=== PATIENT | male | born 1945 | race African-American/Black ===

== ENCOUNTER 2017-07-28 22:04 | Inpatient (IN) | payer MEDICARE, MEDICAID ==
[~2017-07-28] VITALS: Ht 175.3 cm; Wt 79.4 kg
[~2017-07-28 22:04] MED LIST: UNOBMED
[2017-07-28 22:08] VITALS: BP 151/74
--- NOTE | 2017-07-28 22:27 | Emergency Room Report ---
History of Present Illness General Chief Complaint: Syncope Source: EMS Present Illness HPI 72-year-old male p/w pre- syncopal episode. 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 No head trauma and no actual LOC Pt states feeling lightheadedness/nauseous before event. Denies sob, palpitations, or chest pain before event. There was no seizure like activity, tongue biting, urinary incontinence, blurry vision, or HOBBS. Pt has been eating/drinking well. Denies recent fever, chills, n/v/d. Allergies: Coded Allergies: No Known Allergies (Verified , 10/14/08) Patient History Past Medical History: see triage record Past Surgical History: none Pertinent Family History: none Reviewed Nursing Documentation: PMH: Agreed, PSxH: Agreed Nursing Documentation-PMH Hx Cardiac Problems: Yes - HIGH CHOLESTEROL Hx Hypertension: Yes Hx Diabetes: Yes - BORDERLINE DM Review of Systems All Other Systems: negative except mentioned in HPI Physical Exam Vital Signs Date Time Temp Pulse Resp B/P (MAP) Pulse Ox O2 Delivery O2 Flow Rate FiO2 07/28/17 21:59 97.0 66 18 142/70 99 Room Air 97.0 Sp02 EP Interpretation: reviewed, normal General Appearance: normal inspection, well appearing, no apparent distress, alert, GCS 15, non-toxic Head: normocephalic, atraumatic Eyes: bilateral eye normal inspection, bilateral eye PERRL, bilateral eye EOMI ENT: normal ENT inspection, normal pharynx, normal voice, moist mucus membranes Neck: normal inspection, full range of motion, supple Respiratory: normal inspection, lungs clear, normal breath sounds, no respiratory distress, no retraction, no wheezing, speaking full sentences, chest symmetrical Cardiovascular #1: normal inspection, regular rate, rhythm, no edema, normal capillary refill Cardiovascular #2: 2+ radial (R), 2+ radial (L) Gastrointestinal: normal inspection, non tender, soft, non-distended, no guarding Genitourinary: no CVA tenderness Musculoskeletal: normal inspection, back normal, normal range of motion, non- tender Neurologic: normal inspection, alert, oriented x3, responsive, motor strength/ tone normal, sensory intact, normal gait, speech normal Psychiatric: normal inspection, judgement/insight normal, memory normal Skin: normal inspection, normal color, no rash, warm/dry, well hydrated, normal turgor Medical Decision Making Diagnostic Impression: Primary Impression: Pre-syncope Additional Impression: Renal failure ER Course 72-year-old male with pre-syncopal episode DDX: Vasovagal vs. orthostatic / hypovolemic/dehydration vs. cardiac arrhythmia (SVT , Afib) vs. cardiac (, ACS) vs. PE vs. metabolic (hypoglycemia, hypoxia), vs neuro (seizure, CVA, intracranial bleed) Plan: bgm, cbc, bmp, ekg, cxr ER course: Patient has remained stable during ED stay. No further syncopal episodes Labs unremarkable Disposition: Patient requires admission to telemetry. Patient requires further workup of syncopal episode, further lab testing, serial troponins, cardiac monitoring D/W hospitalist Please note that this Emergency Department Report was dictated using [employer] technology software, occasionally this can lead to erroneous entry secondary to interpretation by the dictation equipment EKG Diagnostic Results EP Interpretation: Yes Rate: normal Rhythm: NSR ST Segments: T wave inversion in aVL ASA given to patient: No Rhythm Strip EP Interpretation: Yes Rate: 59 Rhythm: NSR, no PVCs, no ectopy Chest X-ray CXR: Ordered: Yes 1 view Indication: Syncope EP interpretation: Yes Interpretation: No consolidation, no effusion, no PTX, no acute cardiopulmonary disease Impression: No acute disease Electronically signed by Mahi Stewart MD Laboratory Tests Test 07/28/17 22:35 White Blood Count 7.8 K/UL (4.8-10.8) Red Blood Count 3.33 M/UL (4.70-6.10) L Hemoglobin 10.2 G/DL (14.2-18.0) L Hematocrit 31.0 % (42.0-52.0) L Mean Corpuscular Volume 93 FL (80-99) Mean Corpuscular Hemoglobin 30.7 PG (27.0-31.0) Mean Corpuscular Hemoglobin Concent 33.0 G/DL (32.0-36.0) Red Cell Distribution Width 15.0 % (11.6-14.8) H Platelet Count 254 K/UL (150-450) Mean Platelet Volume 6.2 FL (6.5-10.1) L Neutrophils (%) (Auto) 61.6 % (45.0-75.0) Lymphocytes (%) (Auto) 24.1 % (20.0-45.0) Monocytes (%) (Auto) 8.9 % (1.0-10.0) Eosinophils (%) (Auto) 4.4 % (0.0-3.0) H Basophils (%) (Auto) 1.0 % (0.0-2.0) Urine Color Pale yellow Urine Appearance Clear Urine pH 6 (4.5-8.0) Urine Specific [place] 1.010 (1.005-1.035) Urine Protein 3+ (NEGATIVE) H Urine Glucose (UA) Negative (NEGATIVE) Urine Ketones Negative (NEGATIVE) Urine Occult Blood 2+ (NEGATIVE) H Urine Nitrite Negative (NEGATIVE) Urine Bilirubin Negative (NEGATIVE) Urine Urobilinogen Normal MG/DL (0.0-1.0) Urine Leukocyte Esterase 1+ (NEGATIVE) H Urine RBC 2-4 /HPF (0 - 0) H Urine WBC 2-4 /HPF (0 - 0) Urine Squamous Epithelial Cells None /LPF (NONE/OCC) Urine Bacteria Few /HPF (NONE) Sodium Level 139 MMOL/L (136-145) Potassium Level 4.8 MMOL/L (3.5-5.1) Chloride Level 109 MMOL/L (98-107) H Carbon Dioxide Level 20 MMOL/L (21-32) L Anion Gap 10 mmol/L (5-15) Blood Urea Nitrogen 69 mg/dL (7-18) H Creatinine 4.6 MG/DL (0.55-1.30) H Estimate Glomerular Filtration Rate 15.4 mL/min (>60) Glucose Level 104 MG/DL (74-106) Calcium Level 8.5 MG/DL (8.5-10.1) Total Bilirubin 0.3 MG/DL (0.2-1.0) Aspartate Amino Transferase (AST) 11 U/L (15-37) L Alanine Aminotransferase (ALT) 19 U/L (12-78) Alkaline Phosphatase 85 U/L (46-116) Troponin I 0.013 ng/mL (0.000-0.056) Pro-B-Type Natriuretic Peptide 439 pg/mL (0-125) H Total Protein 7.9 G/DL (6.4-8.2) Albumin 3.2 G/DL (3.4-5.0) L Globulin 4.7 g/dL Albumin/Globulin Ratio 0.7 (1.0-2.7) L Last Vital Signs Date Time Temp Pulse Resp B/P (MAP) Pulse Ox O2 Delivery O2 Flow Rate FiO2 07/28/17 22:08 97.6 66 15 151/74 99 Room Air 97.6 Disposition: ADMITTED INPATIENT Condition: Serious RetinoMahi M.D. Jul 28, 2017 22:26
[2017-07-28 22:55] LABS: APPEARANCE,URINE CLEAR; BILIRUBIN, URINE NEGATIVE (NEGATIVE); COLOR,URINE PALE YELLOW; GLUCOSE, URINE (UA) NEGATIVE (NEGATIVE); KETONES,URINE NEGATIVE (NEGATIVE); LEUKOCYTE ESTERASE ,URINE 1+ (NEGATIVE); NITRITE,URINE NEGATIVE (NEGATIVE); PH,URINE 6 (4.5-8.0); PROTEIN,URINE 3+ (NEGATIVE); UROBILINOGEN,URINE NORMAL MG/DL (0.0-1.0)
[2017-07-28 23:05] LABS: EOSINOPHILS % (AUTO) 4.4 % (0.0-3.0); HEMOGLOBIN 10.2 G/DL (14.2-18.0); LYMPHOCYTES % (AUTO) 24.1 % (20.0-45.0); MEAN CORPUSCULAR VOLUME 93 FL (80-99); MONOCYTES % (AUTO) 8.9 % (1.0-10.0); NEUTROPHILS % (AUTO) 61.6 % (45.0-75.0); PLATELET COUNT 254 K/UL (150-450); RED BLOOD COUNT 3.33 M/UL (4.70-6.10); WHITE BLOOD COUNT 7.8 K/UL (4.8-10.8)
[2017-07-28 23:14] LABS: ANION GAP 10 mmol/L (5-15); BLOOD UREA NITROGEN 69 mg/dL (7-18); CALCIUM 8.5 MG/DL (8.5-10.1); CARBON DIOXIDE 20 MMOL/L (21-32); CHLORIDE 109 MMOL/L (98-107); CREATININE 4.6 MG/DL (0.55-1.30); POTASSIUM 4.8 MMOL/L (3.5-5.1); SODIUM 139 MMOL/L (136-145)
[2017-07-28 23:22] LABS: ALANINE AMINOTRANSFERASE 19 U/L (12-78); ALBUMIN 3.2 G/DL (3.4-5.0); ALBUMIN/GLOBULIN RATIO 0.7 (1.0-2.7); ALKALINE PHOSPHATASE 85 U/L (46-116); ASPARTATE AMINO TRANSFERASE 11 U/L (15-37); BILIRUBIN,TOTAL 0.3 MG/DL (0.2-1.0)
[2017-07-29] VITALS (8 sets, daily range): BP systolic 133–171; BP diastolic 72–80
[2017-07-29] MEDS ORDERED: Morphine Sulfate 4mg/ml Inj IVP ONE (02:45)
[2017-07-29] MEDS: D5 1/2NS 1,000 ML IV SCH ×2 (04:00→17:41)
[2017-07-29 08:10] LABS: HEMATOCRIT 28.3 % (42.0-52.0); HEMOGLOBIN 9.4 G/DL (14.2-18.0); LYMPHOCYTES % (AUTO) 20.6 % (20.0-45.0); MEAN CORPUSCULAR VOLUME 93 FL (80-99); MONOCYTES % (AUTO) 12.5 % (1.0-10.0); PLATELET COUNT 238 K/UL (150-450); RED BLOOD COUNT 3.03 M/UL (4.70-6.10); RED CELL DISTRIBUTION WIDTH 15.1 % (11.6-14.8); WHITE BLOOD COUNT 6.6 K/UL (4.8-10.8)
[2017-07-29 08:32] LABS: ALANINE AMINOTRANSFERASE 15 U/L (12-78); ALBUMIN 2.7 G/DL (3.4-5.0); ALBUMIN/GLOBULIN RATIO 0.7 (1.0-2.7); ALKALINE PHOSPHATASE 85 U/L (46-116); ANION GAP 11 mmol/L (5-15); ASPARTATE AMINO TRANSFERASE 10 U/L (15-37); BILIRUBIN,TOTAL 0.3 MG/DL (0.2-1.0); BLOOD UREA NITROGEN 69 mg/dL (7-18); CALCIUM 8.2 MG/DL (8.5-10.1); CARBON DIOXIDE 17 MMOL/L (21-32); CHLORIDE 112 MMOL/L (98-107); CREATININE 4.4 MG/DL (0.55-1.30); POTASSIUM 4.5 MMOL/L (3.5-5.1); SODIUM 140 MMOL/L (136-145)
--- NOTE | 2017-07-29 09:23 | Diagnostic Imaging Report ---
Indication: Reason For Exam: PAIN Technique: XRAY Chest 1v Comparison: 10/14/2008. Findings: The cardiomediastinal silhouette is normal. The lungs are clear. There is no evidence of pleural fluid. The bones are unremarkable. Impression: Normal chest.
--- NOTE | 2017-07-29 11:07 | Consultation ---
Consult Note Consult Note asked to eval for renal failure- Chief Complaint: Syncope 72-year-old male p/w pre- syncopal episode. 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 No head trauma and no actual LOC Pt states feeling lightheadedness/nauseous before event. Denies sob, palpitations, or chest pain before event. There was no seizure like activity, tongue biting, urinary incontinence, blurry vision, or HOBBS. Pt has been eating/drinking well. Denies recent fever, chills, n/v/d. 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
[2017-07-29] MEDS: Tamsulosin 0.4mg cap ORAL SCH ×2 (12:13→17:41)
--- NOTE | 2017-07-29 13:35 | Cardiac Electrophysiology PN ---
Subjective Subjective [id number] HTN Syncope First degree AVB CKD Cr 4.4 Objective Last 24 Hour Vital Signs Date Time Temp Pulse Resp B/P (MAP) Pulse Ox O2 Delivery O2 Flow Rate FiO2 07/29/17 12:13 64 133/80 07/29/17 12:00 96.6 64 20 133/80 96 Room Air 96.6 07/29/17 08:00 96.3 59 20 149/77 97 Room Air 96.3 07/29/17 04:00 57 07/29/17 03:30 98.0 72 17 150/78 100 Room Air 98.0 07/29/17 03:15 98.0 72 17 150/78 100 Room Air 98.0 07/29/17 02:49 97.8 07/29/17 02:25 97.6 74 16 145/74 99 Room Air 97.6 07/29/17 01:45 97.8 78 15 155/78 100 Room Air 97.8 07/29/17 00:05 72 16 148/72 99 Room Air 07/28/17 22:08 97.6 66 15 151/74 99 Room Air 97.6 07/28/17 21:59 97.0 66 18 142/70 99 Room Air 97.0 Intake and Output 07/28/17 07/29/17 19:00 07:00 # Voids 1 Laboratory Tests Test 07/28/17 22:35 07/29/17 07:33 07/29/17 11:20 White Blood Count 7.8 K/UL (4.8-10.8) 6.6 K/UL (4.8-10.8) Red Blood Count 3.33 M/UL (4.70-6.10) L 3.03 M/UL (4.70-6.10) L Hemoglobin 10.2 G/DL (14.2-18.0) L 9.4 G/DL (14.2-18.0) L Hematocrit 31.0 % (42.0-52.0) L 28.3 % (42.0-52.0) L Mean Corpuscular Volume 93 FL (80-99) 93 FL (80-99) Mean Corpuscular Hemoglobin 30.7 PG (27.0-31.0) 31.1 PG (27.0-31.0) H Mean Corpuscular Hemoglobin Concent 33.0 G/DL (32.0-36.0) 33.3 G/DL (32.0-36.0) Red Cell Distribution Width 15.0 % (11.6-14.8) H 15.1 % (11.6-14.8) H Platelet Count 254 K/UL (150-450) 238 K/UL (150-450) Mean Platelet Volume 6.2 FL (6.5-10.1) L 6.8 FL (6.5-10.1) Neutrophils (%) (Auto) 61.6 % (45.0-75.0) 62.0 % (45.0-75.0) Lymphocytes (%) (Auto) 24.1 % (20.0-45.0) 20.6 % (20.0-45.0) Monocytes (%) (Auto) 8.9 % (1.0-10.0) 12.5 % (1.0-10.0) H Eosinophils (%) (Auto) 4.4 % (0.0-3.0) H 4.0 % (0.0-3.0) H Basophils (%) (Auto) 1.0 % (0.0-2.0) 1.0 % (0.0-2.0) Urine Color Pale yellow Urine Appearance Clear Urine pH 6 (4.5-8.0) Urine Specific [place] 1.010 (1.005-1.035) Urine Protein 3+ (NEGATIVE) H Urine Glucose (UA) Negative (NEGATIVE) Urine Ketones Negative (NEGATIVE) Urine Occult Blood 2+ (NEGATIVE) H Urine Nitrite Negative (NEGATIVE) Urine Bilirubin Negative (NEGATIVE) Urine Urobilinogen Normal MG/DL (0.0-1.0) Urine Leukocyte Esterase 1+ (NEGATIVE) H Urine RBC 2-4 /HPF (0 - 0) H Urine WBC 2-4 /HPF (0 - 0) Urine Squamous Epithelial Cells None /LPF (NONE/OCC) Urine Bacteria Few /HPF (NONE) Sodium Level 139 MMOL/L (136-145) 140 MMOL/L (136-145) Potassium Level 4.8 MMOL/L (3.5-5.1) 4.5 MMOL/L (3.5-5.1) Chloride Level 109 MMOL/L (98-107) H 112 MMOL/L (98-107) H Carbon Dioxide Level 20 MMOL/L (21-32) L 17 MMOL/L (21-32) L Anion Gap 10 mmol/L (5-15) 11 mmol/L (5-15) Blood Urea Nitrogen 69 mg/dL (7-18) H 69 mg/dL (7-18) H Creatinine 4.6 MG/DL (0.55-1.30) H 4.4 MG/DL (0.55-1.30) H Estimat Glomerular Filtration Rate 15.4 mL/min (>60) 16.2 mL/min (>60) Glucose Level 104 MG/DL (74-106) 97 MG/DL (74-106) Calcium Level 8.5 MG/DL (8.5-10.1) 8.2 MG/DL (8.5-10.1) L Total Bilirubin 0.3 MG/DL (0.2-1.0) 0.3 MG/DL (0.2-1.0) Aspartate Amino Transf (AST/SGOT) 11 U/L (15-37) L 10 U/L (15-37) L Alanine Aminotransferase (ALT/SGPT) 19 U/L (12-78) 15 U/L (12-78) Alkaline Phosphatase 85 U/L (46-116) 85 U/L (46-116) Troponin I 0.013 ng/mL (0.000-0.056) Pro-B-Type Natriuretic Peptide 439 pg/mL (0-125) H Total Protein 7.9 G/DL (6.4-8.2) 6.8 G/DL (6.4-8.2) Albumin 3.2 G/DL (3.4-5.0) L 2.7 G/DL (3.4-5.0) L Globulin 4.7 g/dL 4.1 g/dL Albumin/Globulin Ratio 0.7 (1.0-2.7) L 0.7 (1.0-2.7) L C-Reactive Protein, Quantitative < 0.4 mg/dL (0.00-0.90) Urine Eosinophils None seen PELON TIDWELL Jul 29, 2017 13:35
--- NOTE | 2017-07-29 16:00 | Consultation ---
DATE OF CONSULTATION: 07/29/2017 CARDIOLOGY CONSULTATION CONSULTING PHYSICIAN: Marvin Macedo M.D. REFERRING PHYSICIAN: Una Prince M.D. REASON FOR CONSULTATION: Management of hypertension and syncope. HISTORY OF PRESENT ILLNESS: The patient is a very pleasant 72-year-old gentleman with history of hypertension, borderline diabetes, and hyperlipidemia, who was brought to the emergency room as he had syncopal episodes. The patient was feeling vp clinical his house and that he thought was sweating a lot. The patient then started feeling lightheaded and dizzy and felt like he was going to pass out. He did not have any head trauma and did not actually have loss of consciousness. The patient does not have history of seizures and did not have any seizure-like activity. His EKG actually showed normal sinus rhythm. He has completely normal electrocardiogram. On telemetry, the patient has remained in normal sinus rhythm with no arrhythmias. Cardiac electrophysiology consultation was obtained for further evaluation and management. REVIEW OF SYSTEMS: Negative other than what was mentioned in history of present illness. PAST MEDICAL HISTORY: 1. Hypertension. 2. Diabetes, borderline. 3. Hyperlipidemia. FAMILY HISTORY: Noncontributory. SOCIAL HISTORY: He is a lives at home. Does not smoke or drink alcohol. PHYSICAL EXAMINATION: VITAL SIGNS: Blood pressure is 132/80, pulse 64, respirations 18, and he is afebrile. HEAD AND NECK: Shows no JVD. LUNGS: Clear. CARDIOVASCULAR: Shows regular S1 and S2 with no gallop or murmur. ABDOMEN: Soft. EXTREMITIES: No pitting edema. LABORATORY AND DIAGNOSTIC DATA: His EKG showed normal sinus rhythm. He has normal electrocardiogram. He only has first-degree AV block and UT interval of 202 msec. LABORATORY DATA: White count of 6.6, hemoglobin 9.4, hematocrit 28.3, and platelet of 238,000. Sodium 140, potassium 4.5, BUN of 69, creatinine of 4.4, and glucose of 97. His troponin is negative. BNP is 439. ASSESSMENT AND PLAN: 1. Syncopal episode, etiology is unclear at this time. We will completely rule out CA protocol and get an echocardiogram to evaluate for ejection fraction and wall motion abnormality the patient has first-degree AV block. There is no evidence of more advanced heart block. The patient will be kept off of AV velia-blocking agent. 2. Hypertension. Continue Norvasc 100 mg daily. 3. Urinary tract infection. 4. Renal failure with creatinine of 4.6. The patient has already been evaluated by Dr. Alvarado. 5. Borderline diabetes. 6. Anemia. Thank you very much, [id number], for allowing me to participate in the care of this patient. Please do not hesitate to contact me for any questions regarding my evaluation. Marvin Macedo M.D. DR: Azar JOB#: [id number] CC:
--- NOTE | 2017-07-29 16:01 | Cardiology Report ---
APPROVED REPORT EKG Measurement Heart [id number] Normal sinus rhythm Normal ECG
--- NOTE | 2017-07-29 16:25 | History & Physical ---
History and Physical History & Physicial Patient seen and examined. Full H&P to follow. Dx: CKD, syncope Plan: renal & cardiology consultation. f/u labs and imaging studies Mirna Mayorga N.P. Jul 29, 2017 16:25
--- NOTE | 2017-07-29 16:44 | Cardiology Report ---
APPROVED REPORT EXAM: Two-dimensional and M-mode echocardiogram with Doppler and color Doppler. INDICATION Congestive Heart Failure M-Mode DIMENSIONS IVSd1.5 (0.7-1.1cm)Left Atrium (MM)2.9 (1.6-4.0cm) LVDd3.9 (3.5-5.6cm)Aortic Root2.8 (2.0-3.7cm) PWd1.8 (0.7-1.1cm)Aortic Cusp Exc.2.0 (1.5-2.0cm) LVDs2.0 (2.5-4.0cm) PWs1.7 cm Normal left ventricular chamber size, systolic function and wall motion. Left ventricular ejection fraction estimated to be 60-65%. Moderate left ventricular hypertrophy. No evidence of pericardial or pleural effusion. Mild bi-atrial enlargement by 2D. Focal aortic valve sclerosis with adequate cusp excursion. Thickened mitral valve leaflets with normal excursion. Mild mitral annulus and aortic root calcification. Pulmonic valve not well visualized. Normal tricuspid valve structure. IVC is normal in size and collapsible with respiration. A color flow and spectral Doppler study was performed and revealed: No aortic regurgitation. No mitral regurgitation. Mitral diastolic velocities suggest reduced left ventricular relaxation c/w diastolic dysfunction grade 1. No tricuspid regurgitation.
--- NOTE | 2017-07-29 23:25 | History and Physical ---
History of Present Illness General Date patient seen: Jul 29, 2017 Time patient seen: 12:01 Reason for Hospitalization: Syncope Present Illness HPI 72 y/o male with a PMH of CKD and HTN presented for syncopal episode yesterday. Patient states that he was in a lot of clothes with the heat turned on and was sweating from excessive heat. Patient states that he was sitting and passed out for about a minute. Denies any head trauma. +LOC. Denies any chest pain, sob, n/ v, abdominal pain, f/c, cough. Patient also noted with elevated Cr and per patient, he has an appointment with his outpatient sports management internship to start dialysis. Allergies: Coded Allergies: No Known Allergies (Verified , 10/14/08) Medication History Miscellaneous Medications Unable to Obtain Medications (Unable To Obtain Meds), (Reported) Patient History History Provided By: Patient Healthcare decision maker Andrea Stacy Girlfrienelvie Resuscitation status Full Code Advanced Directive on File Review of Systems Constitutional: Reports: no symptoms, see HPI Eye: Reports: no symptoms ENT: Reports: no symptoms Respiratory: Reports: no symptoms Cardiovascular: Reports: no symptoms Gastrointestinal: Reports: no symptoms Genitourinary: Reports: no symptoms Musculoskeletal: Reports: no symptoms Skin: Reports: no symptoms Psychiatric: Reports: no symptoms Neurological: Reports: no symptoms Endocrine: Reports: no symptoms Hematologic/Lymphatic: Reports: no symptoms Physical Exam General Appearance: no apparent distress, alert Lines, tubes and drains: peripheral HEENT: normocephalic, atraumatic Neck: non-tender, normal alignment, supple Respiratory/Chest: chest wall non-tender, lungs clear, normal breath sounds, no accessory muscle use Cardiovascular/Chest: normal peripheral pulses, normal rate, regular rhythm Neurologic: lumber trimmer II-XII grossly normal, no motor/sensory deficits Last 24 Hour Vital Signs Date Time Temp Pulse Resp B/P (MAP) Pulse Ox O2 Delivery O2 Flow Rate FiO2 07/29/17 20:36 96.9 07/29/17 20:00 67 07/29/17 16:00 96.9 61 20 152/80 96 Room Air 96.9 07/29/17 16:00 64 07/29/17 12:13 64 133/80 07/29/17 12:00 96.6 64 20 133/80 96 Room Air 96.6 07/29/17 12:00 62 07/29/17 08:00 66 07/29/17 08:00 96.3 59 20 149/77 97 Room Air 96.3 07/29/17 04:00 57 07/29/17 03:30 98.0 72 17 150/78 100 Room Air 98.0 07/29/17 03:15 98.0 72 17 150/78 100 Room Air 98.0 07/29/17 02:49 97.8 07/29/17 02:25 97.6 74 16 145/74 99 Room Air 97.6 07/29/17 01:45 97.8 78 15 155/78 100 Room Air 97.8 07/29/17 00:05 72 16 148/72 99 Room Air Intake and Output 07/28/17 07/29/17 19:00 07:00 # Voids 1 Laboratory Tests Test 07/29/17 07:33 07/29/17 11:20 White Blood Count 6.6 K/UL (4.8-10.8) Red Blood Count 3.03 M/UL (4.70-6.10) L Hemoglobin 9.4 G/DL (14.2-18.0) L Hematocrit 28.3 % (42.0-52.0) L Mean Corpuscular Volume 93 FL (80-99) Mean Corpuscular Hemoglobin 31.1 PG (27.0-31.0) H Mean Corpuscular Hemoglobin Concent 33.3 G/DL (32.0-36.0) Red Cell Distribution Width 15.1 % (11.6-14.8) H Platelet Count 238 K/UL (150-450) Mean Platelet Volume 6.8 FL (6.5-10.1) Neutrophils (%) (Auto) 62.0 % (45.0-75.0) Lymphocytes (%) (Auto) 20.6 % (20.0-45.0) Monocytes (%) (Auto) 12.5 % (1.0-10.0) H Eosinophils (%) (Auto) 4.0 % (0.0-3.0) H Basophils (%) (Auto) 1.0 % (0.0-2.0) Sodium Level 140 MMOL/L (136-145) Potassium Level 4.5 MMOL/L (3.5-5.1) Chloride Level 112 MMOL/L (98-107) H Carbon Dioxide Level 17 MMOL/L (21-32) L Anion Gap 11 mmol/L (5-15) Blood Urea Nitrogen 69 mg/dL (7-18) H Creatinine 4.4 MG/DL (0.55-1.30) H Estimat Glomerular Filtration Rate 16.2 mL/min (>60) Glucose Level 97 MG/DL (74-106) Calcium Level 8.2 MG/DL (8.5-10.1) L Total Bilirubin 0.3 MG/DL (0.2-1.0) Aspartate Amino Transf (AST/SGOT) 10 U/L (15-37) L Alanine Aminotransferase (ALT/SGPT) 15 U/L (12-78) Alkaline Phosphatase 85 U/L (46-116) C-Reactive Protein, Quantitative < 0.4 mg/dL (0.00-0.90) Total Protein 6.8 G/DL (6.4-8.2) Albumin 2.7 G/DL (3.4-5.0) L Globulin 4.1 g/dL Albumin/Globulin Ratio 0.7 (1.0-2.7) L Urine Eosinophils None seen Height (Feet): 5 Height (Inches): 9.00 Weight (Pounds): 175 Medications Current Medications Medications (Trade) Dose Ordered Sig/Chrystal Route PRN Reason Start Time Stop Time Status Last Admin Dose Admin Acetaminophen (Tylenol) 650 mg Q6H PRN ORAL Fever/Headache/Mild Pain 07/29/17 03:00 08/28/17 02:59 07/29/17 20:36 Amlodipine Besylate (Norvasc) 2.5 mg DAILY ORAL 07/29/17 12:00 08/28/17 11:59 07/29/17 12:13 Dextrose (Dextrose 50%) STAT PRN IV Hypoglycemia 07/29/17 02:15 08/28/17 02:14 Dextrose/Sodium Chloride 1,000 ml @ 75 mls/hr [id number] IV 07/29/17 04:00 08/28/17 03:59 07/29/17 17:41 Ondansetron HCl (Zofran) 4 mg Q4H PRN IVP Nausea & Vomiting 07/29/17 02:15 08/28/17 02:14 Tamsulosin HCl (Flomax) 0.4 mg BID ORAL 07/29/17 11:30 08/28/17 11:29 07/29/17 17:41 Assessment/Plan Problem List: (1) Syncope ICD Codes: R55 - Syncope and collapse SNOMED: 058831264 (2) Hypertension ICD Codes: I10 - Essential (primary) hypertension SNOMED: 56513861 (3) Renal failure ICD Codes: N19 - Unspecified kidney failure SNOMED: 37465141 Status: stable Assessment/Plan - Admit to inpatient - renal and cardiology consulted - EKG with no acute ST changes - serial trops - consider ECHO and carotid duplex - trend Cr - continue home norvasc A total of 45 minutes were spent. More than 50% of the care and coordination were spent on discussing with patient, RN, and family. Once medically cleared, I anticipate the patient to go back home with home health Mirna Mayorga N.P. Jul 29, 2017 23:25
[2017-07-30] MEDS: D5 1/2NS 1,000 ML IV SCH (06:36)
[2017-07-30 08:00] VITALS: BP 137/81
[2017-07-30 08:34] LABS: ANION GAP 9 mmol/L (5-15); BLOOD UREA NITROGEN 66 mg/dL (7-18); CALCIUM 8.1 MG/DL (8.5-10.1); CARBON DIOXIDE 18 MMOL/L (21-32); CHLORIDE 113 MMOL/L (98-107); CREATININE 4.3 MG/DL (0.55-1.30); POTASSIUM 5.3 MMOL/L (3.5-5.1); SODIUM 140 MMOL/L (136-145)
[2017-07-30 08:35] LABS: BASOPHILS % (AUTO) 1.1 % (0.0-2.0); EOSINOPHILS % (AUTO) 5.2 % (0.0-3.0); HEMATOCRIT 27.8 % (42.0-52.0); HEMOGLOBIN 9.3 G/DL (14.2-18.0); LYMPHOCYTES % (AUTO) 27.7 % (20.0-45.0); MEAN CORPUSCULAR VOLUME 94 FL (80-99); MONOCYTES % (AUTO) 9.7 % (1.0-10.0); NEUTROPHILS % (AUTO) 56.4 % (45.0-75.0); PLATELET COUNT 238 K/UL (150-450); RED BLOOD COUNT 2.96 M/UL (4.70-6.10); WHITE BLOOD COUNT 6.2 K/UL (4.8-10.8)
[2017-07-30 08:46] LABS: % IRON SATURATION 42 % (15-50); IRON 79 ug/dL (50-175); TOTAL IRON BINDING CAPACITY 190 ug/dL (250-450)
[2017-07-30 08:49] LABS: ALANINE AMINOTRANSFERASE 13 U/L (12-78); ALBUMIN 2.6 G/DL (3.4-5.0); ALBUMIN/GLOBULIN RATIO 0.6 (1.0-2.7); ALKALINE PHOSPHATASE 67 U/L (46-116); ASPARTATE AMINO TRANSFERASE 11 U/L (15-37); BILIRUBIN,TOTAL 0.4 MG/DL (0.2-1.0); CHOLESTEROL 151 MG/DL (< 200); FERRITIN 266 NG/ML (8-388); GAMMA GLUTAMYL TRANSPEPTIDASE 15 U/L (5-85); HDL CHOLESTEROL 86 MG/DL (40-60); PHOSPHORUS 4.3 MG/DL (2.5-4.9); TRIGLYCERIDES < 15 MG/DL (30-150)
[2017-07-30] MEDS: Tamsulosin 0.4mg cap ORAL SCH ×2 (08:53→17:18)
[2017-07-30] MEDS ORDERED: Lexiscan 0.4mg/5ml syringe IV PRN (09:15)
--- NOTE | 2017-07-30 10:25 | Diagnostic Imaging Report ---
Indication:Elevated Bun and Creatinine. Technique: Grayscale and duplex Doppler imaging of the kidneys performed. Comparison: None Findings: There is severe bilateral hydronephrosis present with dilatation of portions of the visualized ureters bilaterally. The urinary bladder is also dilated. Post void labeled bladder has dimensions of approximately 9 x 8 x 8 cm which corresponds to 466 cc. Right kidney measures 16.5 cm left kidney 14 cm in length. IMPRESSION: Severe bilateral hydronephrosis. Dilated urinary bladder.
--- NOTE | 2017-07-30 11:42 | Nephrology Progress Note ---
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 Dilated urinary bladder. Urine studies Flomax BP and BS control Anemia cortez per orders Uro eval Left ventricular ejection fraction estimated to be 60-65%. Moderate left ventricular hypertrophy. Subjective ROS Limited/Unobtainable: No Constitutional: Reports: malaise Objective Objective Last 24 Hour Vital Signs Date Time Temp Pulse Resp B/P (MAP) Pulse Ox O2 Delivery O2 Flow Rate FiO2 07/30/17 08:54 62 137/81 07/30/17 08:00 63 07/30/17 08:00 97.1 62 20 137/81 100 Room Air 97.1 07/30/17 04:00 64 07/30/17 00:00 71 07/29/17 20:36 96.9 07/29/17 20:00 67 07/29/17 20:00 97.9 59 20 171/80 99 Room Air 97.9 07/29/17 16:00 96.9 61 20 152/80 96 Room Air 96.9 07/29/17 16:00 64 07/29/17 12:13 64 133/80 07/29/17 12:00 96.6 64 20 133/80 96 Room Air 96.6 07/29/17 12:00 62 Intake and Output 07/29/17 07/30/17 19:00 07:00 Intake Total 1710 ml 1275 ml Output Total 200 ml 800 ml Balance 1510 ml 475 ml Intake Oral 810 ml 600 ml IV Total 900 ml 675 ml Output Urine Total 200 ml 800 ml # Voids 7 Laboratory Tests 07/30/17 07:04: White Blood Count 6.2, Red Blood Count 2.96L, Hemoglobin 9.3L, Hematocrit 27.8L , Mean Corpuscular Volume 94, Mean Corpuscular Hemoglobin 31.4H, Mean Corpuscular Hemoglobin Concent 33.4, Red Cell Distribution Width 15.0H, Platelet Count 238, Mean Platelet Volume 6.5, Neutrophils (%) (Auto) 56.4, Lymphocytes (%) (Auto) 27.7, Monocytes (%) (Auto) 9.7, Eosinophils (%) (Auto) 5.2H, Basophils (%) (Auto) 1.1, Sodium Level 140, Potassium Level 5.3H, Chloride Level 113H, Carbon Dioxide Level 18L, Anion Gap 9, Blood Urea Nitrogen 66H, Creatinine 4.3H, Estimat Glomerular Filtration Rate 16.6, Glucose Level 89 , Hemoglobin A1c 6.8H, Uric Acid 5.6, Calcium Level 8.1L, Phosphorus Level 4.3, Magnesium Level 1.4L, Iron Level 79, Total Iron Binding Capacity 190L, Percent Iron Saturation 42, Unsaturated Iron Binding 111L, Ferritin 266, Total Bilirubin 0.4, Gamma Glutamyl Transpeptidase 15, Aspartate Amino Transf (AST/ SGOT) 11L, Alanine Aminotransferase (ALT/SGPT) 13, Alkaline Phosphatase 67, Troponin I 0.021, Pro-B-Type Natriuretic Peptide 479H, Total Protein 6.6, Albumin 2.6L, Globulin 4.0, Albumin/Globulin Ratio 0.6L, Triglycerides Level < 15L, Cholesterol Level 151, LDL Cholesterol 68, HDL Cholesterol 86H, Cholesterol /HDL Ratio 1.8L, Vitamin B12 Level 510, Folate 7.9L, Thyroid Stimulating Hormone (TSH) 1.964, Free Thyroxine 0.86 Height (Feet): 5 Height (Inches): 9.00 Weight (Pounds): 175 General Appearance: no apparent distress Cardiovascular: bradycardia Respiratory/Chest: decreased breath sounds Abdomen: soft BERKLEY SANDERSON Jul 30, 2017 11:42
[2017-07-30 12:00] VITALS: BP 132/76
[2017-07-30] MEDS ORDERED: Sodium Polystyrene Sulfonate 15gm Powder ORAL ONE (12:00)
[2017-07-30] MEDS ORDERED: Lidocaine HCl 2% Jelly 5ml Tube TOPIC ONE (12:15)
[2017-07-30] MEDS ORDERED: Morphine Sulfate 2mg/ml Inj IVP PRN (12:15)
--- NOTE | 2017-07-30 13:12 | Cardiac Electrophysiology PN ---
Assessment/Plan Assessment/Plan 1. Syncopal episode, etiology is unclear at this time. Ruled out for [place]. echocardiogram EF 65%. 2. First-degree AV block. There is no evidence of more advanced heart block. Keep off of AV velia-blocking agent. 2. Hypertension. Continue Norvasc 10 mg daily. 3. Urinary tract infection. 4. Renal failure with creatinine of 4.6. FU by Dr. Alvarado. 5. Borderline diabetes. 6. Anemia. Subjective Subjective No chest pain or SOB. Couldn't get stress test for scheduling issue. Objective Last 24 Hour Vital Signs Date Time Temp Pulse Resp B/P (MAP) Pulse Ox O2 Delivery O2 Flow Rate FiO2 07/30/17 08:54 62 137/81 07/30/17 08:00 63 07/30/17 08:00 97.1 62 20 137/81 100 Room Air 97.1 07/30/17 04:00 64 07/30/17 00:00 71 07/29/17 20:36 96.9 07/29/17 20:00 67 07/29/17 20:00 97.9 59 20 171/80 99 Room Air 97.9 07/29/17 16:00 96.9 61 20 152/80 96 Room Air 96.9 07/29/17 16:00 64 Intake and Output 07/29/17 07/30/17 19:00 07:00 Intake Total 1710 ml 1315 ml Output Total 200 ml 800 ml Balance 1510 ml 515 ml Intake Oral 810 ml 600 ml IV Total 900 ml 715 ml Output Urine Total 200 ml 800 ml # Voids 7 Laboratory Tests Test 07/30/17 07:04 White Blood Count 6.2 K/UL (4.8-10.8) Red Blood Count 2.96 M/UL (4.70-6.10) L Hemoglobin 9.3 G/DL (14.2-18.0) L Hematocrit 27.8 % (42.0-52.0) L Mean Corpuscular Volume 94 FL (80-99) Mean Corpuscular Hemoglobin 31.4 PG (27.0-31.0) H Mean Corpuscular Hemoglobin Concent 33.4 G/DL (32.0-36.0) Red Cell Distribution Width 15.0 % (11.6-14.8) H Platelet Count 238 K/UL (150-450) Mean Platelet Volume 6.5 FL (6.5-10.1) Neutrophils (%) (Auto) 56.4 % (45.0-75.0) Lymphocytes (%) (Auto) 27.7 % (20.0-45.0) Monocytes (%) (Auto) 9.7 % (1.0-10.0) Eosinophils (%) (Auto) 5.2 % (0.0-3.0) H Basophils (%) (Auto) 1.1 % (0.0-2.0) Sodium Level 140 MMOL/L (136-145) Potassium Level 5.3 MMOL/L (3.5-5.1) H Chloride Level 113 MMOL/L (98-107) H Carbon Dioxide Level 18 MMOL/L (21-32) L Anion Gap 9 mmol/L (5-15) Blood Urea Nitrogen 66 mg/dL (7-18) H Creatinine 4.3 MG/DL (0.55-1.30) H Estimat Glomerular Filtration Rate 16.6 mL/min (>60) Glucose Level 89 MG/DL (74-106) Hemoglobin A1c 6.8 % (4.3-6.0) H Uric Acid 5.6 MG/DL (2.6-7.2) Calcium Level 8.1 MG/DL (8.5-10.1) L Phosphorus Level 4.3 MG/DL (2.5-4.9) Magnesium Level 1.4 MG/DL (1.8-2.4) L Iron Level 79 ug/dL (50-175) Total Iron Binding Capacity 190 ug/dL (250-450) L Percent Iron Saturation 42 % (15-50) Unsaturated Iron Binding 111 ug/dL (112-346) L Ferritin 266 NG/ML (8-388) Total Bilirubin 0.4 MG/DL (0.2-1.0) Gamma Glutamyl Transpeptidase 15 U/L (5-85) Aspartate Amino Transf (AST/SGOT) 11 U/L (15-37) L Alanine Aminotransferase (ALT/SGPT) 13 U/L (12-78) Alkaline Phosphatase 67 U/L (46-116) Troponin I 0.021 ng/mL (0.000-0.056) Pro-B-Type Natriuretic Peptide 479 pg/mL (0-125) H Total Protein 6.6 G/DL (6.4-8.2) Albumin 2.6 G/DL (3.4-5.0) L Globulin 4.0 g/dL Albumin/Globulin Ratio 0.6 (1.0-2.7) L Triglycerides Level < 15 MG/DL (30-150) L Cholesterol Level 151 MG/DL (< 200) LDL Cholesterol 68 mg/dL (<100) HDL Cholesterol 86 MG/DL (40-60) H Cholesterol/HDL Ratio 1.8 (3.3-4.4) L Prostate Specific Antigen Pending Vitamin B12 Level 510 PG/ML (193-986) Folate 7.9 NG/ML (8.6-58.9) L Thyroid Stimulating Hormone (TSH) 1.964 uiU/mL (0.358-3.740) Free Thyroxine 0.86 NG/DL (0.76-1.46) Objective HEAD AND NECK: Shows no JVD. LUNGS: Clear. CARDIOVASCULAR: Elfego egular S1 and S2 with no gallop or murmur. ABDOMEN: Soft. EXTREMITIES: No pitting edema. PELON TIDWELL Jul 30, 2017 13:12
[2017-07-30] MEDS: Morphine Sulfate 4mg/ml Inj IVP PRN ×2 (13:36→21:33)
[2017-07-30] MEDS ORDERED: D5 1/2NS 1000ml IV ONE (15:03)
[2017-07-30 16:00] VITALS: BP 158/90
--- NOTE | 2017-07-30 17:18 | General Progress Note ---
Assessment/Plan Problem List: (1) Syncope ICD Codes: R55 - Syncope and collapse SNOMED: 580757618 (2) AVIVA on CKD Assessment & Plan: Likely CKD due to diabetic and hpertensive nephropathy (3) Hyperkalemia ICD Codes: E87.5 - Hyperkalemia SNOMED: 55405092 (4) Urinary retention ICD Codes: R33.9 - Retention of urine, unspecified SNOMED: 819087300 (5) Bilateral hydronephrosis ICD Codes: N13.30 - Unspecified hydronephrosis SNOMED: 30365642 (6) Hypertension ICD Codes: I10 - Essential (primary) hypertension SNOMED: 55542501 (7) BPH (benign prostatic hyperplasia) ICD Codes: N40.0 - Benign prostatic hyperplasia without lower urinary tract symptoms SNOMED: 582902935 (8) DM2 (diabetes mellitus, type 2) Assessment & Plan: A1C 6.8 ICD Codes: E11.9 - Type 2 diabetes mellitus without complications SNOMED: 71875857 Status: stable Assessment/Plan - Renal and cardiology consulted, appreciate rec's - Trend BMP closely - Renal U/S reviewed and shows severe b/l hydronephrosis - Urology consulted. Bone placed 07/30/17 given urinary retention and severe b/ l hydronephrosis - Started flomax + finasteride - EKG with no acute ST changes - Trop neg x2 - TTE showed EF 60-65% - Nuc stress test ordered - Continue home norvasc - DC pending urology/renal eval and stress test results DVT Prophylaxis: SCD Code Status: Full Hospital Classification Declaration: Based on this initial evaluation, and depending on the patient's clinical course, I anticipate that this patient will require hospitalization for 1-2 days for AVIVA, b/l hydronephrosis, syncope eval, and close respiratory/hemodynamic monitoring. Disposition: Once the patient is stable to leave the hospital, I anticipate the patient will likely be discharged to the following environment: home with HH vs SNF Discussed with patient/family, nursing staff, SW/CM, urology, cardiology, renal regarding clinical status, treatment course, and disposition planning. D/w urology re bone placement. D/w cardiology re stress test Time of note may not reflect time of encounter. Subjective Date patient seen: Jul 30, 2017 Time patient seen: 15:00 ROS Limited/Unobtainable: No Constitutional: Reports: no symptoms HEENT: Reports: no symptoms Cardiovascular: Reports: no symptoms Respiratory: Reports: no symptoms Gastrointestinal/Abdominal: Reports: no symptoms Genitourinary: Reports: no symptoms Neurologic/Psychiatric: Reports: no symptoms Endocrine: Reports: no symptoms Hematologic/Lymphatic: Reports: no symptoms Allergies: Coded Allergies: No Known Allergies (Verified , 10/14/08) Subjective No acute o/n events Pt feeling well. States he passed out because he was "overheated". Denies f/c, n /v, d/c, chest pain, SOB, abd pain Noted to have urinary retention w/ bladder scan showing 800mL. Bone ordered but difficult placement per RN. Urology consulted Objective Last 24 Hour Vital Signs Date Time Temp Pulse Resp B/P (MAP) Pulse Ox O2 Delivery O2 Flow Rate FiO2 07/30/17 14:06 97.1 07/30/17 12:00 57 07/30/17 08:54 62 137/81 07/30/17 08:00 63 07/30/17 08:00 97.1 62 20 137/81 100 Room Air 97.1 07/30/17 04:00 64 07/30/17 00:00 71 07/29/17 20:36 96.9 07/29/17 20:00 67 07/29/17 20:00 97.9 59 20 171/80 99 Room Air 97.9 Intake and Output 07/29/17 07/30/17 19:00 07:00 Intake Total 1710 ml 1315 ml Output Total 200 ml 800 ml Balance 1510 ml 515 ml Intake Oral 810 ml 600 ml IV Total 900 ml 715 ml Output Urine Total 200 ml 800 ml # Voids 7 Laboratory Tests 07/30/17 07:04: White Blood Count 6.2, Red Blood Count 2.96L, Hemoglobin 9.3L, Hematocrit 27.8L , Mean Corpuscular Volume 94, Mean Corpuscular Hemoglobin 31.4H, Mean Corpuscular Hemoglobin Concent 33.4, Red Cell Distribution Width 15.0H, Platelet Count 238, Mean Platelet Volume 6.5, Neutrophils (%) (Auto) 56.4, Lymphocytes (%) (Auto) 27.7, Monocytes (%) (Auto) 9.7, Eosinophils (%) (Auto) 5.2H, Basophils (%) (Auto) 1.1, Sodium Level 140, Potassium Level 5.3H, Chloride Level 113H, Carbon Dioxide Level 18L, Anion Gap 9, Blood Urea Nitrogen 66H, Creatinine 4.3H, Estimat Glomerular Filtration Rate 16.6, Glucose Level 89 , Hemoglobin A1c 6.8H, Uric Acid 5.6, Calcium Level 8.1L, Phosphorus Level 4.3, Magnesium Level 1.4L, Iron Level 79, Total Iron Binding Capacity 190L, Percent Iron Saturation 42, Unsaturated Iron Binding 111L, Ferritin 266, Total Bilirubin 0.4, Gamma Glutamyl Transpeptidase 15, Aspartate Amino Transf (AST/ SGOT) 11L, Alanine Aminotransferase (ALT/SGPT) 13, Alkaline Phosphatase 67, Troponin I 0.021, Pro-B-Type Natriuretic Peptide 479H, Total Protein 6.6, Albumin 2.6L, Globulin 4.0, Albumin/Globulin Ratio 0.6L, Triglycerides Level < 15L, Cholesterol Level 151, LDL Cholesterol 68, HDL Cholesterol 86H, Cholesterol /HDL Ratio 1.8L, Prostate Specific Antigen 0.64, Vitamin B12 Level 510, Folate 7.9L, Thyroid Stimulating Hormone (TSH) 1.964, Free Thyroxine 0.86 Height (Feet): 5 Height (Inches): 9.00 Weight (Pounds): 175 Objective General: alert, cooperative, no distress, appears stated age Head: normocephalic, without obvious abnormality, atraumatic Eyes: conjunctivae/corneas clear. PERRL, EOM's intact Throat: lips, mucosa, and tongue normal. MMM Neck: supple, symmetrical, trachea midline, and no JVD Lungs: clear to auscultation bilaterally Heart: regular rate and rhythm, S1, S2 normal, no murmur, click, rub or gallop Abdomen: soft, non-tender, non-distended, bowel sounds normal Extremities: extremities normal, atraumatic, no cyanosis or edema Pulses: 2+ and symmetric Skin: skin color, texture, turgor normal; no rashes or lesions Neurologic: grossly normal, no focal deficits Jonel Hurt M.D. Jul 30, 2017 17:18
[2017-07-30 20:00] VITALS: BP 150/80
[2017-07-31] VITALS: BP 149/84
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
[2017-07-31] MEDS: D5 1/2NS 1,000 ML IV SCH ×2 (00:11→12:07)
[2017-07-31] MEDS ORDERED: Phenazopyridine 200mg tab ORAL PRN ×2 (01:15→02:45)
[2017-07-31] MEDS ORDERED: Norco 5mg/325mg tab ORAL PRN (01:15)
[2017-07-31] MEDS: Morphine Sulfate 4mg/ml Inj IVP PRN ×3 (01:43→22:22)
[2017-07-31 03:40] LABS: BILIRUBIN, URINE NEGATIVE (NEGATIVE); COLOR,URINE RED; GLUCOSE, URINE (UA) NEGATIVE (NEGATIVE); KETONES,URINE NEGATIVE (NEGATIVE); PH,URINE 7 (4.5-8.0); PROTEIN,URINE 4+ (NEGATIVE); UROBILINOGEN,URINE NORMAL MG/DL (0.0-1.0)
[2017-07-31 03:52] LABS: APPEARANCE,URINE SLIGHTLY CLOUDY; LEUKOCYTE ESTERASE ,URINE NEGATIVE (NEGATIVE); NITRITE,URINE NEGATIVE (NEGATIVE)
[2017-07-31] MEDS: Norco 5mg/325mg tab ORAL PRN ×2 (04:09→17:12)
[2017-07-31 08:00] VITALS: BP 149/80
[2017-07-31] MEDS ORDERED: Lidocaine HCl 2% Jelly 5ml Tube TOPIC ONE ×2 (08:00→08:15)
[2017-07-31 08:15] LABS: ALANINE AMINOTRANSFERASE 13 U/L (12-78); ALBUMIN 2.4 G/DL (3.4-5.0); ALBUMIN/GLOBULIN RATIO 0.6 (1.0-2.7); ALKALINE PHOSPHATASE 69 U/L (46-116); ANION GAP 10 mmol/L (5-15); ASPARTATE AMINO TRANSFERASE 10 U/L (15-37); BILIRUBIN,TOTAL 0.3 MG/DL (0.2-1.0); BLOOD UREA NITROGEN 60 mg/dL (7-18); CALCIUM 7.8 MG/DL (8.5-10.1); CARBON DIOXIDE 18 MMOL/L (21-32); CHLORIDE 111 MMOL/L (98-107); PHOSPHORUS 4.5 MG/DL (2.5-4.9); POTASSIUM 4.6 MMOL/L (3.5-5.1); SODIUM 139 MMOL/L (136-145)
[2017-07-31] MEDS: Tamsulosin 0.4mg cap ORAL SCH ×2 (09:01→17:11)
--- NOTE | 2017-07-31 09:12 | Urology Progress Note ---
Assessment/Plan Assessment/Plan 1. Urinary retention. 2. Benign prostatic hypertrophy. 3. Rule out neurogenic bladder. 4. Proteinuria. 5. Hematuria. 6. Pyuria. 7. Renal insufficiency, acute on chronic. 8. Hydronephrosis, which is probably chronic. keep bone hand irrigated, no clots irrigate bone PRN topical xylocaine to penile meatus PRN can't give pyridium secondary to renal insuff repeat renal imaging later monitor renal fxn cysto later d/w nursing staff d/w Dr. Hurt Subjective Allergies: Coded Allergies: No Known Allergies (Verified , 10/14/08) Subjective feels fair, some bone-related discomfort Objective Last 24 Hour Vital Signs Date Time Temp Pulse Resp B/P (MAP) Pulse Ox O2 Delivery O2 Flow Rate FiO2 07/31/17 09:02 61 149/80 07/31/17 08:00 96.3 61 20 149/80 100 Room Air 96.3 07/31/17 05:08 97.5 07/31/17 04:09 97.5 07/31/17 04:00 66 07/31/17 01:43 97.5 07/31/17 00:00 61 07/31/17 00:00 96.6 62 22 149/84 99 Room Air 96.6 07/30/17 22:03 97.5 07/30/17 21:33 97.5 07/30/17 20:00 97.7 68 20 150/80 99 Room Air 97.7 07/30/17 20:00 61 07/30/17 16:00 97.5 57 20 158/90 99 Room Air 97.5 07/30/17 16:00 58 07/30/17 12:00 57 07/30/17 12:00 97.5 60 20 132/76 99 Room Air 97.5 Intake and Output 07/30/17 07/31/17 19:00 07:00 Intake Total 716 ml 450 ml Output Total 500 ml 2300 ml Balance 216 ml -1850 ml Intake Oral 116 ml IV Total 600 ml 450 ml Output Urine Total 500 ml 2300 ml Current Medications Medications (Trade) Dose Ordered Sig/Chrystal Route PRN Reason Start Time Stop Time Status Last Admin Dose Admin Acetaminophen (Tylenol) 650 mg Q6H PRN ORAL Fever/Headache/Mild Pain 07/29/17 03:00 08/28/17 02:59 07/29/17 20:36 Acetaminophen/ Hydrocodone Bitart (Venetia 5/325) 1 tab Q6H PRN ORAL Severe Breakthru Pain (>7) 07/31/17 07:15 08/07/17 07:14 07/31/17 04:09 Amlodipine Besylate (Norvasc) 2.5 mg DAILY ORAL 07/29/17 12:00 08/28/17 11:59 07/31/17 09:02 Dextrose (Dextrose 50%) STAT PRN IV Hypoglycemia 07/29/17 02:15 08/28/17 02:14 Dextrose/Sodium Chloride 1,000 ml @ 75 mls/hr [id number] IV 07/29/17 04:00 08/28/17 03:59 07/31/17 00:11 Finasteride (Proscar) 5 mg DAILY ORAL 07/31/17 09:00 08/30/17 08:59 07/31/17 09:02 Lidocaine HCl (Xylocaine Jelly 2%) 1 applic ONCE ONCE TOPIC 07/31/17 08:15 07/31/17 08:16 UNV Magnesium Sulfate 100 ml @ 100 mls/hr Q1H IVPB 07/31/17 09:00 07/31/17 10:59 Morphine Sulfate (Morphine Sulfate) 2 mg Q4H PRN IVP for moderate pain(4-6) 07/30/17 12:15 08/06/17 12:14 Morphine Sulfate (Morphine Sulfate) 4 mg Q4H PRN IVP For severe pain(7-10) 07/30/17 12:15 08/06/17 12:14 07/31/17 09:08 Ondansetron HCl (Zofran) 4 mg Q4H PRN IVP Nausea & Vomiting 07/29/17 02:15 08/28/17 02:14 Phenazopyridine HCl (Pyridium) 200 mg TID PRN ORAL Pain Scale (3-5) 07/31/17 02:45 08/30/17 02:44 07/31/17 03:30 Tamsulosin HCl (Flomax) 0.4 mg BID ORAL 07/29/17 11:30 08/28/17 11:29 07/31/17 09:01 Laboratory Tests 07/31/17 01:20: Urine Color Red, Urine Appearance Slightly cloudy, Urine pH 7, Urine Specific [place] 1.010, Urine Protein 4+H, Urine Glucose (UA) Negative, Urine Ketones Negative, Urine Occult Blood 5+H, Urine Nitrite Negative, Urine Bilirubin Negative, Urine Urobilinogen Normal, Urine Leukocyte Esterase Negative, Urine RBC TntcH, Urine WBC 0-2, Urine Squamous Epithelial Cells None, Urine Bacteria None 07/31/17 06:24: Sodium Level 139, Potassium Level 4.6, Chloride Level 111H, Carbon Dioxide Level 18L, Anion Gap 10, Blood Urea Nitrogen 60H, Creatinine 4.0H, Estimat Glomerular Filtration Rate 18.1, Glucose Level 101, Uric Acid 5.5, Calcium Level 7.8L, Phosphorus Level 4.5, Magnesium Level 1.2L, Total Bilirubin 0.3, Aspartate Amino Transf (AST/SGOT) 10L, Alanine Aminotransferase (ALT/SGPT) 13, Alkaline Phosphatase 69, Total Protein 6.3L, Albumin 2.4L, Globulin 3.9, Albumin /Globulin Ratio 0.6L Height (Feet): 5 Height (Inches): 9.00 Weight (Pounds): 175 Objective exam stable, abdomen soft, urine is blood-tinged ZACKARY BUENO Jul 31, 2017 09:12
--- NOTE | 2017-07-31 11:00 | Nephrology Progress Note ---
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 Dilated urinary bladder. Urine studies Flomax BP and BS control Anemia cortez per orders Uro eval noted Left ventricular ejection fraction estimated to be 60-65%. Moderate left ventricular hypertrophy. Objective Objective Last 24 Hour Vital Signs Date Time Temp Pulse Resp B/P (MAP) Pulse Ox O2 Delivery O2 Flow Rate FiO2 07/31/17 09:02 61 149/80 07/31/17 08:00 59 07/31/17 08:00 96.3 61 20 149/80 100 Room Air 96.3 07/31/17 05:08 97.5 07/31/17 04:09 97.5 07/31/17 04:00 66 07/31/17 01:43 97.5 07/31/17 00:00 61 07/31/17 00:00 96.6 62 22 149/84 99 Room Air 96.6 07/30/17 22:03 97.5 07/30/17 21:33 97.5 07/30/17 20:00 97.7 68 20 150/80 99 Room Air 97.7 07/30/17 20:00 61 07/30/17 16:00 97.5 57 20 158/90 99 Room Air 97.5 07/30/17 16:00 58 07/30/17 12:00 57 07/30/17 12:00 97.5 60 20 132/76 99 Room Air 97.5 Intake and Output 07/30/17 07/31/17 19:00 07:00 Intake Total 716 ml 450 ml Output Total 500 ml 2300 ml Balance 216 ml -1850 ml Intake Oral 116 ml IV Total 600 ml 450 ml Output Urine Total 500 ml 2300 ml Laboratory Tests 07/31/17 01:20: Urine Color Red, Urine Appearance Slightly cloudy, Urine pH 7, Urine Specific Cook 1.010, Urine Protein 4+H, Urine Glucose (UA) Negative, Urine Ketones Negative, Urine Occult Blood 5+H, Urine Nitrite Negative, Urine Bilirubin Negative, Urine Urobilinogen Normal, Urine Leukocyte Esterase Negative, Urine RBC TntcH, Urine WBC 0-2, Urine Squamous Epithelial Cells None, Urine Bacteria None 07/31/17 06:24: Sodium Level 139, Potassium Level 4.6, Chloride Level 111H, Carbon Dioxide Level 18L, Anion Gap 10, Blood Urea Nitrogen 60H, Creatinine 4.0H, Estimat Glomerular Filtration Rate 18.1, Glucose Level 101, Uric Acid 5.5, Calcium Level 7.8L, Phosphorus Level 4.5, Magnesium Level 1.2L, Total Bilirubin 0.3, Aspartate Amino Transf (AST/SGOT) 10L, Alanine Aminotransferase (ALT/SGPT) 13, Alkaline Phosphatase 69, Total Protein 6.3L, Albumin 2.4L, Globulin 3.9, Albumin /Globulin Ratio 0.6L Height (Feet): 5 Height (Inches): 9.00 Weight (Pounds): 175 BERKLEY SANDERSON Jul 31, 2017 11:00
[2017-07-31 11:42] VITALS: BP 143/69
[2017-07-31] MEDS: Docusate 100mg cap ORAL SCH ×2 (12:05→17:11)
[2017-07-31] MEDS ORDERED: Lidocaine HCl 2% Jelly 5ml Tube TOPIC PRN ×2 (12:30→18:30)
--- NOTE | 2017-07-31 13:19 | General Progress Note ---
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 (3) Hyperkalemia ICD Codes: E87.5 - Hyperkalemia SNOMED: 28220313 (4) Urinary retention ICD Codes: R33.9 - Retention of urine, unspecified SNOMED: 614634892 (5) Bilateral hydronephrosis ICD Codes: N13.30 - Unspecified hydronephrosis SNOMED: 59696824 (6) Hypertension ICD Codes: I10 - Essential (primary) hypertension SNOMED: 86228769 (7) BPH (benign prostatic hyperplasia) ICD Codes: N40.0 - Benign prostatic hyperplasia without lower urinary tract symptoms SNOMED: 324016004 (8) DM2 (diabetes mellitus, type 2) Assessment & Plan: A1C 6.8 ICD Codes: E11.9 - Type 2 diabetes mellitus without complications SNOMED: 94975025 (9) Hypomagnesemia ICD Codes: E83.42 - Hypomagnesemia SNOMED: 944885741 (10) Metabolic acidosis ICD Codes: E87.2 - Acidosis SNOMED: 41515828 Status: stable Assessment/Plan - Renal and cardiology consulted, appreciate rec's - Trend BMP closely - Renal U/S reviewed and shows severe b/l hydronephrosis - Urology consulted. Bone placed 07/30/17 given urinary retention and severe b/ l hydronephrosis - Cont flomax + finasteride - EKG with no acute ST changes - Trop neg x2 - TTE showed EF 60-65% - Nuc stress test completed. F/u results - Continue home norvasc - DC pending urology/renal eval and stress test results, likely tomorrow - Home health ordered DVT Prophylaxis: SCD Code Status: Full Hospital Classification Declaration: Based on this initial evaluation, and depending on the patient's clinical course, I anticipate that this patient will require hospitalization for 1-2 days for AVIVA, b/l hydronephrosis, syncope eval, and close respiratory/hemodynamic monitoring. Disposition: Once the patient is stable to leave the hospital, I anticipate the patient will likely be discharged to the following environment: home with HH Discussed with patient/family, nursing staff, SW/CM, urology, cardiology, renal regarding clinical status, treatment course, and disposition planning. D/w urology re bone placement. D/w cardiology re stress test. D/w renal re monitoring 1 more day Time of note may not reflect time of encounter. Subjective Date patient seen: Jul 31, 2017 Time patient seen: 13:19 ROS Limited/Unobtainable: No Constitutional: Reports: no symptoms HEENT: Reports: no symptoms Cardiovascular: Reports: no symptoms Respiratory: Reports: no symptoms Gastrointestinal/Abdominal: Reports: no symptoms Genitourinary: Reports: no symptoms Neurologic/Psychiatric: Reports: no symptoms Endocrine: Reports: no symptoms Hematologic/Lymphatic: Reports: no symptoms Allergies: Coded Allergies: No Known Allergies (Verified , 10/14/08) All Systems: reviewed and negative except above Subjective No acute o/n events Noted to have urinary retention w/ bladder scan showing 800mL. Bone placed by urology which resulted in >1L urine Pt feeling well. States he passed out because he was "overheated". Denies f/c, n /v, d/c, chest pain, SOB, abd pain Stress test completed today, awaiting results Objective Last 24 Hour Vital Signs Date Time Temp Pulse Resp B/P (MAP) Pulse Ox O2 Delivery O2 Flow Rate FiO2 07/31/17 12:00 58 07/31/17 11:42 97.7 61 20 143/69 100 Room Air 97.7 07/31/17 09:02 61 149/80 07/31/17 08:00 59 07/31/17 08:00 96.3 61 20 149/80 100 Room Air 96.3 07/31/17 05:08 97.5 07/31/17 04:09 97.5 07/31/17 04:00 66 07/31/17 01:43 97.5 07/31/17 00:00 61 07/31/17 00:00 96.6 62 22 149/84 99 Room Air 96.6 07/30/17 22:03 97.5 07/30/17 21:33 97.5 07/30/17 20:00 97.7 68 20 150/80 99 Room Air 97.7 07/30/17 20:00 61 07/30/17 16:00 97.5 57 20 158/90 99 Room Air 97.5 07/30/17 16:00 58 Intake and Output 07/30/17 07/31/17 19:00 07:00 Intake Total 716 ml 450 ml Output Total 500 ml 2300 ml Balance 216 ml -1850 ml Intake Oral 116 ml IV Total 600 ml 450 ml Output Urine Total 500 ml 2300 ml Laboratory Tests 07/31/17 01:20: Urine Color Red, Urine Appearance Slightly cloudy, Urine pH 7, Urine Specific [place] 1.010, Urine Protein 4+H, Urine Glucose (UA) Negative, Urine Ketones Negative, Urine Occult Blood 5+H, Urine Nitrite Negative, Urine Bilirubin Negative, Urine Urobilinogen Normal, Urine Leukocyte Esterase Negative, Urine RBC TntcH, Urine WBC 0-2, Urine Squamous Epithelial Cells None, Urine Bacteria None 07/31/17 06:24: Sodium Level 139, Potassium Level 4.6, Chloride Level 111H, Carbon Dioxide Level 18L, Anion Gap 10, Blood Urea Nitrogen 60H, Creatinine 4.0H, Estimat Glomerular Filtration Rate 18.1, Glucose Level 101, Uric Acid 5.5, Calcium Level 7.8L, Phosphorus Level 4.5, Magnesium Level 1.2L, Total Bilirubin 0.3, Aspartate Amino Transf (AST/SGOT) 10L, Alanine Aminotransferase (ALT/SGPT) 13, Alkaline Phosphatase 69, C-Reactive Protein, Quantitative < 0.4, Total Protein 6.3L, Albumin 2.4L, Globulin 3.9, Albumin/Globulin Ratio 0.6L Height (Feet): 5 Height (Inches): 9.00 Weight (Pounds): 175 Objective General: alert, cooperative, no distress, appears stated age Head: normocephalic, without obvious abnormality, atraumatic Eyes: conjunctivae/corneas clear. PERRL, EOM's intact Throat: lips, mucosa, and tongue normal. MMM Neck: supple, symmetrical, trachea midline, and no JVD Lungs: clear to auscultation bilaterally Heart: regular rate and rhythm, S1, S2 normal, no murmur, click, rub or gallop Abdomen: soft, non-tender, non-distended, bowel sounds normal Extremities: extremities normal, atraumatic, no cyanosis or edema Pulses: 2+ and symmetric Skin: skin color, texture, turgor normal; no rashes or lesions Neurologic: grossly normal, no focal deficits Jonel Hurt M.D.b 27, 2018 13:19
--- NOTE | 2017-07-31 15:32 | Cardiac Electrophysiology PN ---
Assessment/Plan Assessment/Plan 1. Syncopal episode, etiology is unclear at this time. Ruled out for [place]. Echocardiogram EF 65%. Nuclear stress test pending today. 2. First-degree AV block. No evidence of advanced heart block. Keep off of AV velia-blocking agent. 2. Hypertension. Continue Norvasc 10 mg daily. 3. Urinary tract infection. 4. Renal failure with creatinine of 4.6. FU by Dr. Alvraado. Kidney WIL Severe bilateral hydronephrosis. Dilated urinary bladder. Urology consulted. Granda placed 07/30/17 . Started flomax + finasteride 5. Borderline diabetes. 6. Anemia. DW RN Subjective Subjective No chest pain or SOB. Getting the 3rd part of stress test . Objective Last 24 Hour Vital Signs Date Time Temp Pulse Resp B/P (MAP) Pulse Ox O2 Delivery O2 Flow Rate FiO2 07/31/17 12:00 58 07/31/17 11:42 97.7 61 20 143/69 100 Room Air 97.7 07/31/17 09:02 61 149/80 07/31/17 08:00 59 07/31/17 08:00 96.3 61 20 149/80 100 Room Air 96.3 07/31/17 05:08 97.5 07/31/17 04:09 97.5 07/31/17 04:00 66 07/31/17 01:43 97.5 07/31/17 00:00 61 07/31/17 00:00 96.6 62 22 149/84 99 Room Air 96.6 07/30/17 22:03 97.5 07/30/17 21:33 97.5 07/30/17 20:00 97.7 68 20 150/80 99 Room Air 97.7 07/30/17 20:00 61 07/30/17 16:00 97.5 57 20 158/90 99 Room Air 97.5 07/30/17 16:00 58 Intake and Output 07/30/17 07/31/17 19:00 07:00 Intake Total 716 ml 450 ml Output Total 500 ml 2300 ml Balance 216 ml -1850 ml Intake Oral 116 ml IV Total 600 ml 450 ml Output Urine Total 500 ml 2300 ml Laboratory Tests Test 07/31/17 01:20 07/31/17 06:24 Urine Color Red Urine Appearance Slightly cloudy Urine pH 7 (4.5-8.0) Urine Specific [place] 1.010 (1.005-1.035) Urine Protein 4+ (NEGATIVE) H Urine Glucose (UA) Negative (NEGATIVE) Urine Ketones Negative (NEGATIVE) Urine Occult Blood 5+ (NEGATIVE) H Urine Nitrite Negative (NEGATIVE) Urine Bilirubin Negative (NEGATIVE) Urine Urobilinogen Normal MG/DL (0.0-1.0) Urine Leukocyte Esterase Negative (NEGATIVE) Urine RBC Tntc /HPF (0 - 0) H Urine WBC 0-2 /HPF (0 - 0) Urine Squamous Epithelial Cells None /LPF (NONE/OCC) Urine Bacteria None /HPF (NONE) Sodium Level 139 MMOL/L (136-145) Potassium Level 4.6 MMOL/L (3.5-5.1) Chloride Level 111 MMOL/L (98-107) H Carbon Dioxide Level 18 MMOL/L (21-32) L Anion Gap 10 mmol/L (5-15) Blood Urea Nitrogen 60 mg/dL (7-18) H Creatinine 4.0 MG/DL (0.55-1.30) H Estimat Glomerular Filtration Rate 18.1 mL/min (>60) Glucose Level 101 MG/DL (74-106) Uric Acid 5.5 MG/DL (2.6-7.2) Calcium Level 7.8 MG/DL (8.5-10.1) L Phosphorus Level 4.5 MG/DL (2.5-4.9) Magnesium Level 1.2 MG/DL (1.8-2.4) L Total Bilirubin 0.3 MG/DL (0.2-1.0) Aspartate Amino Transf (AST/SGOT) 10 U/L (15-37) L Alanine Aminotransferase (ALT/SGPT) 13 U/L (12-78) Alkaline Phosphatase 69 U/L (46-116) C-Reactive Protein, Quantitative < 0.4 mg/dL (0.00-0.90) Total Protein 6.3 G/DL (6.4-8.2) L Albumin 2.4 G/DL (3.4-5.0) L Globulin 3.9 g/dL Albumin/Globulin Ratio 0.6 (1.0-2.7) L Objective HEAD AND NECK: Shows no JVD. LUNGS: Clear. CARDIOVASCULAR: Regular S1 and S2 with no gallop or murmur. ABDOMEN: Soft. EXTREMITIES: No pitting edema. PELON TIDWELL Jul 31, 2017 15:32
[2017-07-31 16:00] VITALS: BP 133/78
--- NOTE | 2017-07-31 16:01 | Diagnostic Imaging Report ---
Indication: chest pain Technique: The study was conducted under the supervision of a microfilm equipment inspector. Exercise on a treadmill utilizing (Ken protocol) followed by intravenous administration of 29.4 mCi of technetium 99m Myoview was performed. Three plane SPECT imaging of the heart was then performed. A resting study was performed as part of the one-day protocol with 10.1 mCi of technetium 99m myoview injected intravenously at that time. Three plane SPECT imaging of the heart was obtained. Comparison: None Clinical data: Resting heart rate: 61. Peak exercise heart rate: 53. Resting BP: 174/87. Peak exercise BP: 162/79 Patient symptoms: Flushing, dizziness, headache, shortness of breath. 1. Clinical response: Nondiagnostic 2. Electrocardiographic response: Non ischemic Findings: The myocardial perfusion scan demonstrates no definite fixed or reversible perfusion defects. Left ventricular ejection fraction estimated at 71%. IMPRESSION: No areas of ischemia demonstrated by SPECT imaging. However this study is relatively nondiagnostic due to inadequate stress as peak heart rate was far short of target heart rate.
[2017-07-31 20:00] VITALS: BP 165/93
[2017-08-01] VITALS: BP 142/63
[2017-08-01] MEDS: D5 1/2NS 1,000 ML IV SCH (03:02)
[2017-08-01] MEDS: Norco 5mg/325mg tab ORAL PRN ×2 (03:10→10:08)
[2017-08-01 04:00] VITALS: BP 141/96
[2017-08-01 08:00] VITALS: BP 125/56
[2017-08-01 08:50] LABS: BASOPHILS % (AUTO) 0.9 % (0.0-2.0); EOSINOPHILS % (AUTO) 5.8 % (0.0-3.0); HEMATOCRIT 28.2 % (42.0-52.0); HEMOGLOBIN 9.4 G/DL (14.2-18.0); LYMPHOCYTES % (AUTO) 24.3 % (20.0-45.0); MEAN CORPUSCULAR VOLUME 93 FL (80-99); MONOCYTES % (AUTO) 13.1 % (1.0-10.0); PLATELET COUNT 221 K/UL (150-450); RED BLOOD COUNT 3.03 M/UL (4.70-6.10); RED CELL DISTRIBUTION WIDTH 14.9 % (11.6-14.8); WHITE BLOOD COUNT 6.5 K/UL (4.8-10.8)
[2017-08-01] MEDS: Docusate 100mg cap ORAL SCH ×3 (08:53→18:00)
[2017-08-01] MEDS: Tamsulosin 0.4mg cap ORAL SCH ×2 (08:53→18:00)
[2017-08-01 09:12] LABS: ALANINE AMINOTRANSFERASE 10 U/L (12-78); ALBUMIN 2.2 G/DL (3.4-5.0); ALBUMIN/GLOBULIN RATIO 0.6 (1.0-2.7); ALKALINE PHOSPHATASE 75 U/L (46-116); ANION GAP 8 mmol/L (5-15); ASPARTATE AMINO TRANSFERASE 9 U/L (15-37); BILIRUBIN,TOTAL 0.2 MG/DL (0.2-1.0); BLOOD UREA NITROGEN 56 mg/dL (7-18); CALCIUM 8.2 MG/DL (8.5-10.1); CARBON DIOXIDE 21 MMOL/L (21-32); CHLORIDE 111 MMOL/L (98-107); PHOSPHORUS 4.2 MG/DL (2.5-4.9); POTASSIUM 4.4 MMOL/L (3.5-5.1); SODIUM 140 MMOL/L (136-145)
--- NOTE | 2017-08-01 10:03 | Nephrology Progress Note ---
Assessment/Plan Problem List: (1) Acute renal failure (ARF) (2) Bilateral hydronephrosis (3) Anemia in chronic kidney disease Assessment admitted with syncope- Renal failure, likely CKD due to Diabetic and Hypertensive Nephropathy- Cr lowering to 4 today Also have bilateral hydro on WIL DM HTN Anemia Plan Plan; stop IV fluid keep bone in as leg bag OK to DC and fu as OP with Uro and Nephro Kidney WIL Severe bilateral hydronephrosis. Dilated urinary bladder. cont Flomax BP and BS control Anemia cortez per orders Left ventricular ejection fraction estimated to be 60-65%. Moderate left ventricular hypertrophy. Subjective ROS Limited/Unobtainable: No Constitutional: Reports: malaise Objective Objective Last 24 Hour Vital Signs Date Time Temp Pulse Resp B/P (MAP) Pulse Ox O2 Delivery O2 Flow Rate FiO2 08/01/17 08:54 72 141/96 08/01/17 08:00 97.2 19 125/56 100 Room Air 97.2 08/01/17 04:00 98.2 76 21 141/96 98 98.2 08/01/17 04:00 72 08/01/17 03:10 99.0 08/01/17 00:00 72 08/01/17 00:00 99.0 70 20 142/63 98 Room Air 99.0 07/31/17 22:52 99.0 07/31/17 22:22 63 165/93 07/31/17 22:22 97.1 07/31/17 20:00 97.1 63 20 165/93 98 Room Air 97.1 07/31/17 20:00 72 07/31/17 16:00 97.1 58 20 133/78 98 Room Air 97.1 07/31/17 16:00 59 07/31/17 12:00 58 07/31/17 11:42 97.7 61 20 143/69 100 Room Air 97.7 Intake and Output 07/31/17 08/01/17 19:00 07:00 Intake Total 1465 ml Output Total 2250 ml 1700 ml Balance -785 ml -1700 ml Intake Oral 690 ml IV Total 775 ml Output Urine Total 2250 ml 1700 ml Laboratory Tests 08/01/17 08:10: White Blood Count 6.5, Red Blood Count 3.03L, Hemoglobin 9.4L, Hematocrit 28.2L , Mean Corpuscular Volume 93, Mean Corpuscular Hemoglobin 31.0, Mean Corpuscular Hemoglobin Concent 33.3, Red Cell Distribution Width 14.9H, Platelet Count 221, Mean Platelet Volume 7.4, Neutrophils (%) (Auto) 56.0, Lymphocytes (%) (Auto) 24.3, Monocytes (%) (Auto) 13.1H, Eosinophils (%) (Auto) 5.8H, Basophils (%) (Auto) 0.9, Sodium Level 140, Potassium Level 4.4, Chloride Level 111H, Carbon Dioxide Level 21, Anion Gap 8, Blood Urea Nitrogen 56H, Creatinine 4.0H, Estimat Glomerular Filtration Rate 18.1, Glucose Level 100, Uric Acid 5.9, Calcium Level 8.2L, Phosphorus Level 4.2, Magnesium Level 1.5L, Total Bilirubin 0.2, Aspartate Amino Transf (AST/SGOT) 9L, Alanine Aminotransferase (ALT/SGPT) 10L, Alkaline Phosphatase 75, Pro-B-Type Natriuretic Peptide 318H, Total Protein 5.9L, Albumin 2.2L, Globulin 3.7, Albumin/Globulin Ratio 0.6L Height (Feet): 5 Height (Inches): 9.00 Weight (Pounds): 175 General Appearance: no apparent distress Respiratory/Chest: lungs clear Abdomen: soft Objective other PE not changed BERKLEY SANDERSON Aug 01, 2017 10:03
--- NOTE | 2017-08-01 10:15 | Urology Progress Note ---
Assessment/Plan Assessment/Plan 1. Urinary retention. 2. Benign prostatic hypertrophy. 3. Rule out neurogenic bladder. 4. Proteinuria. 5. Hematuria. 6. Pyuria. 7. Renal insufficiency, acute on chronic. 8. Hydronephrosis, which is probably chronic. keep bone, pt to go home with indwelling bone hand irrigated, no clots irrigate bone PRN topical xylocaine to penile meatus PRN, rx given can't give pyridium secondary to renal insuff repeat renal imaging later, check for hydro status monitor renal fxn as outpt cysto later, can be done as outpt may need TURP at some point d/w nursing staff d/w Dr. Hurt d/w pt fully Subjective Allergies: Coded Allergies: No Known Allergies (Verified , 10/14/08) Subjective feels fair, plan is for dc to home today Objective Last 24 Hour Vital Signs Date Time Temp Pulse Resp B/P (MAP) Pulse Ox O2 Delivery O2 Flow Rate FiO2 08/01/17 08:54 72 141/96 08/01/17 08:00 97.2 19 125/56 100 Room Air 97.2 08/01/17 04:00 98.2 76 21 141/96 98 98.2 08/01/17 04:00 72 08/01/17 03:10 99.0 08/01/17 00:00 72 08/01/17 00:00 99.0 70 20 142/63 98 Room Air 99.0 07/31/17 22:52 99.0 07/31/17 22:22 63 165/93 07/31/17 22:22 97.1 07/31/17 20:00 97.1 63 20 165/93 98 Room Air 97.1 07/31/17 20:00 72 07/31/17 16:00 97.1 58 20 133/78 98 Room Air 97.1 07/31/17 16:00 59 07/31/17 12:00 58 07/31/17 11:42 97.7 61 20 143/69 100 Room Air 97.7 Intake and Output 07/31/17 08/01/17 19:00 07:00 Intake Total 1465 ml Output Total 2250 ml 1700 ml Balance -785 ml -1700 ml Intake Oral 690 ml IV Total 775 ml Output Urine Total 2250 ml 1700 ml Microbiology Date/Time Source Procedure Growth Status 07/31/17 01:20 Indwelling Cath Urine Culture - Preliminary NO GROWTH AFTER 24 HOURS Resulted Current Medications Medications (Trade) Dose Ordered Sig/Chrystal Route PRN Reason Start Time Stop Time Status Last Admin Dose Admin Acetaminophen (Tylenol) 650 mg Q6H PRN ORAL Fever/Headache/Mild Pain 07/29/17 03:00 08/28/17 02:59 07/29/17 20:36 Acetaminophen/ Hydrocodone Bitart ([place] 5/325) 1 tab Q6H PRN ORAL Severe Breakthru Pain (>7) 07/31/17 07:15 08/07/17 07:14 08/01/17 10:08 Amlodipine Besylate (Norvasc) 5 mg DAILY ORAL 08/02/17 09:00 08/30/17 20:59 Dextrose (Dextrose 50%) STAT PRN IV Hypoglycemia 07/29/17 02:15 08/28/17 02:14 Docusate Sodium (Colace) 100 mg THREE TIMES A DAY ORAL 07/31/17 13:00 08/30/17 12:59 08/01/17 08:53 Finasteride (Proscar) 5 mg DAILY ORAL 07/31/17 09:00 08/30/17 08:59 08/01/17 08:54 Lidocaine HCl (Xylocaine Jelly 2%) 1 applic BIDPRN PRN TOPIC pain 07/31/17 18:30 08/30/17 18:29 Ondansetron HCl (Zofran) 4 mg Q4H PRN IVP Nausea & Vomiting 07/29/17 02:15 08/28/17 02:14 Pantoprazole (Protonix) 40 mg DAILY ORAL 07/31/17 11:15 08/30/17 11:14 08/01/17 08:54 Phenazopyridine HCl (Pyridium) 200 mg TID PRN ORAL Pain Scale (3-5) 07/31/17 02:45 08/30/17 02:44 07/31/17 03:30 Tamsulosin HCl (Flomax) 0.4 mg BID ORAL 07/29/17 11:30 08/28/17 11:29 08/01/17 08:53 Laboratory Tests 08/01/17 08:10: White Blood Count 6.5, Red Blood Count 3.03L, Hemoglobin 9.4L, Hematocrit 28.2L , Mean Corpuscular Volume 93, Mean Corpuscular Hemoglobin 31.0, Mean Corpuscular Hemoglobin Concent 33.3, Red Cell Distribution Width 14.9H, Platelet Count 221, Mean Platelet Volume 7.4, Neutrophils (%) (Auto) 56.0, Lymphocytes (%) (Auto) 24.3, Monocytes (%) (Auto) 13.1H, Eosinophils (%) (Auto) 5.8H, Basophils (%) (Auto) 0.9, Sodium Level 140, Potassium Level 4.4, Chloride Level 111H, Carbon Dioxide Level 21, Anion Gap 8, Blood Urea Nitrogen 56H, Creatinine 4.0H, Estimat Glomerular Filtration Rate 18.1, Glucose Level 100, Uric Acid 5.9, Calcium Level 8.2L, Phosphorus Level 4.2, Magnesium Level 1.5L, Total Bilirubin 0.2, Aspartate Amino Transf (AST/SGOT) 9L, Alanine Aminotransferase (ALT/SGPT) 10L, Alkaline Phosphatase 75, Pro-B-Type Natriuretic Peptide 318H, Total Protein 5.9L, Albumin 2.2L, Globulin 3.7, Albumin/Globulin Ratio 0.6L Height (Feet): 5 Height (Inches): 9.00 Weight (Pounds): 175 Objective exam stable, abdomen soft, urine is blood-tinged ZACKARY BUENO Aug 01, 2017 10:15
[2017-08-01 12:00] VITALS: BP 150/71
[2017-08-01] MEDS ORDERED: FINASTERIDE5 MG ORAL (14:36)
[2017-08-01] MEDS ORDERED: PROTONIX40 MG ORAL (14:36)
[2017-08-01] MEDS ORDERED: FLOMAX0.4 MG ORAL (14:36)
[2017-08-01] MEDS ORDERED: NORVASC2.5 MG ORAL (14:36)
--- NOTE | 2017-08-01 14:45 | Discharge Instructions ---
Discharge Instructions Discharge Instructions Follow up with: Primary care doctor and urology within 1-2 weeks Services at Discharge: home health services Diet: renal (80g protein, 2GM) Special Instructions Urology, Dr. Barreto - [id number] [id number] For Congestive Heart Failure Reminder Report to your physician any weight gain of 5 pounds or more in one week. Jonel Hurt M.D. Aug 01, 2017 14:44
[2017-08-01 16:00] VITALS: BP 143/83
--- NOTE | 2017-08-01 17:18 | Cardiac Electrophysiology PN ---
Assessment/Plan Status Narrative The myocardial perfusion scan demonstrates no definite fixed or reversible perfusion defects. Left ventricular ejection fraction estimated at 71%. Assessment/Plan 1. Syncopal episode, etiology is unclear at this time. Ruled out for [place]. Echocardiogram EF 65%. Nuclear stress test showed no ischemia. 2. First-degree AV block. No evidence of advanced heart block. Keep off of AV velia-blocking agent. 2. Hypertension. Continue Norvasc 10 mg daily. 3. Urinary tract infection. 4. Renal failure with creatinine of 4. FU by Dr. Alvarado. Kidney WIL Severe bilateral hydronephrosis. Dilated urinary bladder. Granda placed 07/30/17 .On flomax + finasteride. Follow up Dr Barreto 5. Borderline diabetes. 6. Anemia. KATELYN RN Subjective Subjective No chest pain or SOB. Has Granda for hematuria.. Objective Last 24 Hour Vital Signs Date Time Temp Pulse Resp B/P (MAP) Pulse Ox O2 Delivery O2 Flow Rate FiO2 08/01/17 16:00 97.2 18 143/83 97 Room Air 97.2 08/01/17 12:00 97.1 18 150/71 100 Room Air 97.1 08/01/17 12:00 51 08/01/17 08:54 72 141/96 08/01/17 08:00 60 08/01/17 08:00 97.2 19 125/56 100 Room Air 97.2 08/01/17 04:00 98.2 76 21 141/96 98 98.2 08/01/17 04:00 72 08/01/17 03:10 99.0 08/01/17 00:00 72 08/01/17 00:00 99.0 70 20 142/63 98 Room Air 99.0 07/31/17 22:52 99.0 07/31/17 22:22 63 165/93 07/31/17 22:22 97.1 07/31/17 20:00 97.1 63 20 165/93 98 Room Air 97.1 07/31/17 20:00 72 Intake and Output 07/31/17 08/01/17 19:00 07:00 Intake Total 1465 ml Output Total 2250 ml 1700 ml Balance -785 ml -1700 ml Intake Oral 690 ml IV Total 775 ml Output Urine Total 2250 ml 1700 ml Laboratory Tests Test 08/01/17 08:10 White Blood Count 6.5 K/UL (4.8-10.8) Red Blood Count 3.03 M/UL (4.70-6.10) L Hemoglobin 9.4 G/DL (14.2-18.0) L Hematocrit 28.2 % (42.0-52.0) L Mean Corpuscular Volume 93 FL (80-99) Mean Corpuscular Hemoglobin 31.0 PG (27.0-31.0) Mean Corpuscular Hemoglobin Concent 33.3 G/DL (32.0-36.0) Red Cell Distribution Width 14.9 % (11.6-14.8) H Platelet Count 221 K/UL (150-450) Mean Platelet Volume 7.4 FL (6.5-10.1) Neutrophils (%) (Auto) 56.0 % (45.0-75.0) Lymphocytes (%) (Auto) 24.3 % (20.0-45.0) Monocytes (%) (Auto) 13.1 % (1.0-10.0) H Eosinophils (%) (Auto) 5.8 % (0.0-3.0) H Basophils (%) (Auto) 0.9 % (0.0-2.0) Sodium Level 140 MMOL/L (136-145) Potassium Level 4.4 MMOL/L (3.5-5.1) Chloride Level 111 MMOL/L (98-107) H Carbon Dioxide Level 21 MMOL/L (21-32) Anion Gap 8 mmol/L (5-15) Blood Urea Nitrogen 56 mg/dL (7-18) H Creatinine 4.0 MG/DL (0.55-1.30) H Estimat Glomerular Filtration Rate 18.1 mL/min (>60) Glucose Level 100 MG/DL (74-106) Uric Acid 5.9 MG/DL (2.6-7.2) Calcium Level 8.2 MG/DL (8.5-10.1) L Phosphorus Level 4.2 MG/DL (2.5-4.9) Magnesium Level 1.5 MG/DL (1.8-2.4) L Total Bilirubin 0.2 MG/DL (0.2-1.0) Aspartate Amino Transf (AST/SGOT) 9 U/L (15-37) L Alanine Aminotransferase (ALT/SGPT) 10 U/L (12-78) L Alkaline Phosphatase 75 U/L (46-116) Pro-B-Type Natriuretic Peptide 318 pg/mL (0-125) H Total Protein 5.9 G/DL (6.4-8.2) L Albumin 2.2 G/DL (3.4-5.0) L Globulin 3.7 g/dL Albumin/Globulin Ratio 0.6 (1.0-2.7) L Microbiology Date/Time Source Procedure Growth Status 07/31/17 01:20 Indwelling Cath Urine Culture - Preliminary NO GROWTH AFTER 24 HOURS Resulted Objective HEAD AND NECK: Shows no JVD. LUNGS: Clear. CARDIOVASCULAR: Regular S1 and S2 with no gallop or murmur. ABDOMEN: Soft. EXTREMITIES: No pitting edema.Kalee is in. PELON TIDWELL Aug 01, 2017 17:18
[2017-08-01] MEDS ORDERED: D5 1/2NS 1000ml IV ONE (17:45)
--- NOTE | 2017-08-01 23:22 | Discharge Summary ---
Discharge Summary Hospital Course Date of Admission Jul 29, 2017 at 01:13 Date of Discharge 08/01/17 Admitting Diagnosis syncope/renal failure HPI 72 y/o male with a PMH of CKD and HTN presented for syncopal episode yesterday. Patient states that he was in a lot of clothes with the heat turned on and was sweating from excessive heat. Patient states that he was sitting and passed out for about a minute. Denies any head trauma. +LOC. Denies any chest pain, sob, n/ v, abdominal pain, f/c, cough. Patient also noted with elevated Cr and per patient, he has an appointment with his outpatient door builder to start dialysis. Consultations Cardiology, Urology Hospital Course [facility]. He was ruled out for ACS with serial trop/EKG. Pt was seen by cardiology and nuclear cardiac stress test which negative. Pt noted to have severe b/l hydronephrosis on renal U/S. Urology was consulted as pt with severe urinary retention. BPH meds optimized. Bone placed w/ >1L output. SCr improved slightly. Pt was discharged w/ bone and follow-up with urology in 1-2 weeks for further management. Home health was ordered for bone care. Discharge physical exam General: alert, cooperative, no distress, appears stated age Head: normocephalic, without obvious abnormality, atraumatic Eyes: conjunctivae/corneas clear. PERRL, EOM's intact Throat: lips, mucosa, and tongue normal. 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 (3) Hyperkalemia ICD Codes: E87.5 - Hyperkalemia SNOMED: 82893549 (4) Urinary retention ICD Codes: R33.9 - Retention of urine, unspecified SNOMED: 524498927 (5) Bilateral hydronephrosis ICD Codes: N13.30 - Unspecified hydronephrosis SNOMED: 02836207 (6) Hypertension ICD Codes: I10 - Essential (primary) hypertension SNOMED: 81991134 (7) BPH (benign prostatic hyperplasia) ICD Codes: N40.0 - Benign prostatic hyperplasia without lower urinary tract symptoms SNOMED: 883633088 (8) DM2 (diabetes mellitus, type 2) Assessment & Plan: A1C 6.8 ICD Codes: E11.9 - Type 2 diabetes mellitus without complications SNOMED: 44401918 (9) Hypomagnesemia ICD Codes: E83.42 - Hypomagnesemia SNOMED: 050559105 (10) Metabolic acidosis ICD Codes: E87.2 - Acidosis Discharge Medications New Medications: Amlodipine Besylate (Norvasc) 2.5 Mg Tablet 5 MG ORAL DAILY, #30 TAB 3 Refills Finasteride (Finasteride) 5 Mg Tablet 5 MG ORAL DAILY, #30 TAB 3 Refills Pantoprazole* (Protonix*) 40 Mg Tablet.dr 40 MG ORAL DAILY, #30 TAB 1 Refill Tamsulosin HCl (Flomax) 0.4 Mg Cap.er.24h 0.4 MG ORAL BID, #60 CAP 3 Refills Continued Medications: Unable to Obtain Medications (Unable To Obtain Meds) 1 Ea Ea Discharge Condition Upon Discharge: stable Discharge Disposition Patient was discharged to Home with home health Discharge Diagnoses: Discharge Instructions Discharge Instructions Follow up with: Primary care doctor and urology within 1-2 weeks Services Upon Discharge: home health services Jonel Hurt M.D. Aug 01, 2017 23:22
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
== END 2017-08-01 20:59 | disposition home health service (06) | DRG 469 ==
LOC: EDBD 22:04 → EMR 23:00 → EDBEDREQ 07-29 01:13 → 2E 07-29 01:13
DX: N17.9 Acute kidney failure, unspecified (principal); E87.2 Acidosis; E11.22 Type 2 diabetes mellitus with diabetic chronic kidney disease; E87.5 Hyperkalemia; D63.1 Anemia in chronic kidney disease; I44.0 Atrioventricular block, first degree; I12.9 Hypertensive chronic kidney disease with stage 1 through stage 4 chronic kidney disease, or unspecified chronic kidney disease; R55 Syncope and collapse; N18.9 Chronic kidney disease, unspecified; N40.1 Benign prostatic hyperplasia with lower urinary tract symptoms; R33.8 Other retention of urine; N13.30 Unspecified hydronephrosis; E78.5 Hyperlipidemia, unspecified
CPT/HCPCS: 36415; 71045; 76775; 78452; 80053; 80061; 81001; 81003; 82607; 82728; 82746; 82977; 83036; 83540; 83550; 83735; 83880; 84100; 84153; 84439; 84443; 84484; 84550; 85025; 86140; 87086; 89050; 93005; 93017; 93306; 93880; 99285; J2785